=== PATIENT | female | born 1970 | race Caucasian/White ===

== ENCOUNTER 2017-12-13 11:17 | Emergency (ER) | payer BC ==
[~2017-12-13] VITALS: Ht 160 cm; Wt 70.0 kg
[2017-12-13 11:29] VITALS: BP 166/74; PULSE 70; RESP 18; TEMP 98.4; O2SAT 100
[2017-12-13] MEDS ORDERED: LORA1TAB12 PO (11:40)
--- NOTE | 2017-12-13 12:54 | RADRPT ---
EXAM DATE: 12/13/2017 12:48 PM EDT AGE/SEX: 47 years / Female INDICATIONS: Left leg/knee pain. CLINICAL DATA: This is the patient's initial encounter. Patient reports that signs and symptoms have been present for 1 month and indicates a pain score of 8/10. MEDICAL/SURGICAL HISTORY: Non-responsive. Left leg pain. . Cleft palate surgery. COMPARISON: No prior [facility] exams available for comparison. TECHNIQUE: Venous ultrasound of both lower extremities was performed from the inguinal ligament to t he proximal calf. Real-time, color Doppler and spectral tracing, compression and augmentation techni ques were used. FINDINGS: There is normal compressibility of the deep venous system from the inguinal region to the proximal ca lf. No echogenic clot is seen in the lumen of the common femoral, femoral, popliteal, and posterior tibial veins. There is a normal response of the venous system to proximal and distal augmentation an d respiration. CONCLUSION: 1. Negative exam with no evidence of deep venous thrombosis. Electronically signed by: Portillo Thomas MD 12/13/2017 12:53 PM EDT
--- NOTE | 2017-12-13 13:29 | PD ---
HPI Chief Complaint: Musculoskeletal Complaint Time Seen by Provider: 11:40 Travel History International Travel<30 days: No Contact w/Intl Traveler<30days: No Traveled to known affect area: No History of Present Illness HPI 47-year-old female here with nontraumatic left knee pain ongoing for 4 weeks. She has previously had an x-ray which was negative. She had a prior ultrasound which was also negative. She presents today with concern that this is a DVT. She has had no prior history of DVT. No hormone replacement therapy. No history of cancer. No recent immobilization. No recent surgery. She has pain localized to the posterior aspect of the knee which is constant. Unrelieved with 400 mg ibuprofen. Symptom severity is mild to moderate. No aggravating or alleviating factors. No chest pain or shortness of breath. PFSH Past Medical History Medical History: Denies Significant Hx Diminished Hearing: No Tetanus Vaccination: < 5 Years Influenza Vaccination: Yes ?: Unknown LMP: 4 weeks ago Past Surgical History Other Surgery: Yes (cleft pallet) Social History Alcohol Use: Yes (wine occ) Tobacco Use: No Substance Use: No Allergies-Medications (Allergen,Severity, Reaction): Coded Allergies: No Known Allergies (Unverified , 12/13/17) Reported Meds & Prescriptions Reported Meds & Active Scripts Active Reported Lorazepam 1 Mg Tab 1 Mg PO HS PRN Review of Systems Except as stated in HPI: all other systems reviewed are Neg General / Constitutional: No: Fever Eyes: No: Visual changes HENT: No: Headaches Cardiovascular: No: Chest Pain or Discomfort Respiratory: No: Shortness of Breath Gastrointestinal: No: Abdominal Pain Genitourinary: No: Dysuria Physical Exam Narrative GENERAL: Alert and well-appearing 47-year-old female SKIN: Warm and dry. HEAD: Normocephalic. EYES: No injection or drainage. NECK: Supple CARDIOVASCULAR: Regular rate and rhythm without murmurs, gallops, or rubs. RESPIRATORY: Breath sounds equal bilaterally. No accessory muscle use. GASTROINTESTINAL: Abdomen soft, non-tender, nondistended. MUSCULOSKELETAL: No cyanosis, or edema. Left lower externally: +TTP posterior aspect of the knee. The knee is stable. No joint effusion. No warmth or erythema. No calf swelling or tenderness. Full range of motion. Palpable DP pulse. Brisk cap refill. BACK: Nontender without obvious deformity. No CVA tenderness. Data Data Last Documented VS Vital Signs Date Time Temp Pulse Resp B/P (MAP) Pulse Ox O2 Delivery O2 Flow Rate FiO2 12/13/17 11:29 98.4 70 18 166/74 (104) 100 Orders Orders Us Leg Venous Doppler (12/13/17 11:55) Ed Discharge Order (12/13/17 13:29) MDM Medical Decision Making Medical Screen Exam Complete: Yes Emergency Medical Condition: Yes Differential Diagnosis Strain/sprain, Hu's cyst, DVT Narrative Course 47-year-old female here with left posterior knee pain. Extremities neurovascularly intact. Prior x-rays were negative. Patient was concerned of DVT. Ultrasound is negative for DVT. She is instructed to continue with the Mitchell wrap and increased NSAIDs from 400 mg of ibuprofen to 800 mg of ibuprofen every 6 hours as needed for pain. Follow-up with PCP Diagnosis Primary Impression: Knee pain Qualified Codes: M25.562 - Pain in left knee Referrals: [facility] Additional Instructions: Mitchell wrap as directed. Ibuprofen 800 mg every 6 hours as needed for pain. Disposition: 01 DISCHARGE HOME Condition: Stable Valerie Al December 13, 2017 13:29
== END 2017-12-13 13:45 | disposition home or self-care (01) ==
LOC: PHEFT 11:17
DX: M25.562 Pain in left knee (principal); M79.605 Pain in left leg
CPT/HCPCS: 93971; 99284